=== PATIENT | male | born 1980 | race Caucasian/White ===

== ENCOUNTER 2019-01-09 09:53 | Emergency (ER) | payer OTHER ==
--- NOTE | 2019-01-09 10:27 | EDM.PDOC ---
ED HPI GENERAL MEDICAL PROBLEM - General Chief Complaint: ENT Problem Stated Complaint: SORE THROAT Time Seen by Provider: 01/09/19 10:27 Source of Information: Reports: Patient History Limitations: Reports: No Limitations - History of Present Illness INITIAL COMMENTS - FREE TEXT/NARRATIVE: 38-year-old male in with a scratchy sore throat for the past 12 hours, he was in with his sons over the past several days and has strep in the family. No cough or shortness of breath, possibly low-grade fever overnight but none at this time. He wants to make sure he doesn't have strep. Onset: Gradual Duration: Day(s): (1 day) Associated Symptoms: Reports: No Other Symptoms throat Pain Score (Numeric/FACES): 4 - Related Data Allergies Allergy/AdvReac Type Severity Reaction Status Date / Time No Known Allergies Allergy Verified 01/09/19 10:19 Home Meds: Home Meds Dimethyl Fumarate [Tecfidera] 240 mg PO BID 01/09/19 [History] atorvaSTATin Calcium [Lipitor] 20 mg PO BEDTIME 01/09/19 [History] Past Medical History Cardiovascular History: Reports: High Cholesterol Neurological History: Reports: MS Social & Family History - Tobacco Use Smoking Status *Q: Current Every Day Smoker Years of Tobacco use: 15 Packs/Tins Daily: 1 ED ROS ENT - Review of Systems Review Of Systems: See Below Constitutional: Reports: Fever (Possible low-grade fever overnight, none currently) HEENT: Reports: Throat Pain. Denies: Ear Pain, Rhinitis Respiratory: Denies: Shortness of Breath, Cough GI/Abdominal: Denies: Abdominal Pain, Nausea, Vomiting Skin: Reports: No Symptoms Neurological: Denies: Headache ED EXAM, ENT - Physical Exam Exam: See Below Exam Limited By: No Limitations General Appearance: Alert, No Apparent Distress Mouth/Throat: Normal Inspection Head: Atraumatic Neck: No: Lymphadenopathy (R), Lymphadenopathy (L) Respiratory/Chest: No Respiratory Distress, Lungs Clear Course - Vital Signs Last Recorded V/S: Last Vital Signs Temp 97.6 F 01/09/19 10:18 Pulse 90 01/09/19 10:18 Resp 16 01/09/19 10:18 BP 157/93 H 01/09/19 10:18 Pulse Ox 98 01/09/19 10:18 - Re-Assessments/Exams Free Text/Narrative Re-Assessment/Exam: 01/09/19 10:43 A rapid strep was obtained. 01/09/19 10:55 Strep was positive, patient was placed on amoxicillin 500 mg 3 times a day for at least the next 7 days. Return if worsening, or consider rechecking in 3-4 days if not improving satisfactorily. Departure - Departure Time of Disposition: 11:05 Disposition: Home, Self-Care 01 Condition: Good Clinical Impression: Acute streptococcal pharyngitis - Discharge Information Instructions: Strep Throat, [id number] Referrals: PCP,None [Primary Care Provider] - Forms: ED Department Discharge Care Plan Goals: Take antibiotic 3 times a day for at least 7 days, rest and fluids are important and recheck at any time if worsening despite treatment. Also consider rechecking in 3-4 days if not improving satisfactorily.
== END 2019-01-09 11:05 | disposition home or self-care (01) ==
LOC: JP.ED 09:53
DX: J02.0 Streptococcal pharyngitis (principal); F17.210 Nicotine dependence, cigarettes, uncomplicated
CPT/HCPCS: 87430; 99283